=== PATIENT | male | born 1990 | race Caucasian/White ===

== ENCOUNTER 2017-06-29 09:55 | Day surgery (SDC) | payer OTHER ==
[2017-06-29] MEDS ORDERED: PROPOFOL 40 ML (10:46)
[2017-06-29] MEDS ORDERED: EPHEDrine SULFATE 50 MG/5 ML SYG (11:19)
== END 2017-06-29 14:00 | disposition home or self-care (01) ==
LOC: GIL 09:55
DX: K64.8 Other hemorrhoids (principal)
CPT/HCPCS: 45380; 88305